=== PATIENT | male | born 1960 ===

== ENCOUNTER 2018-07-01 07:11 | Day surgery (SDC) | payer MEDICARE, MEDICAID ==
[2018-07-01 07:31] VITALS: BMI 40.2
[2018-07-01 07:49] VITALS: O2SAT 100
--- NOTE | 2018-07-01 08:47 | CP.SDSHP ---
Same Day Surgery H & P - History Proposed Procedure: EGD/COLONSCOPY Pre-Op Diagnosis: SEE NOTES - Previous Medical/Surgical History Cardiac: Hypertension, ASHD/CAD, Arrhythmia Endocrine/Metabolic: Other Misc: Other Pain: 4.Moderate Pain - Allergies Allergies: Allergies No Known Allergies Allergy (Verified 05/07/13 08:19) - Physical Exam General Appearance: N Vital Signs: Vital Signs 07/01/18 07:37 Temperature 97.2 F L Pulse Rate 80 Respiratory 17 Rate Blood Pressure 147/85 O2 Sat by Pulse 100 Oximetry Mental Status: Alert & Oriented x3 Neuro: WNL Heart: Other Lungs: WNL GI: Other - {Optional Preform as Required} Breast: WNL Abdomen: Other Rectal: Other Integument: WNL : WNL Ortho: WNL ENT: WNL - Impression Pt. Evaluated Today:Candidate for Anesthesia & Procedure: Yes - Date & Time Time: 08:47 Short Stay Discharge - Short Stay Discharge Admitting Diagnosis/Reason for Visit: DIARRHEA, DYSPEPSIA Disposition: HOME/ ROUTINE
[2018-07-01] MEDS ORDERED: Propofol 10 mg/ml Inj (20 ML) ONE (08:51)
[2018-07-01] MEDS ORDERED: Belladonna-Phenobarbital PO ONE (09:45)
[2018-07-01 10:54] VITALS: TEMP 97.8
[2018-07-01 10:55] VITALS: RESP 12
[2018-07-01 11:01] VITALS: BP 131/67; PULSE 88
== END 2018-07-01 10:20 | disposition home or self-care (01) ==
LOC: C.ENDO 07:11
PROVIDERS: ATTEND Specialist
DX: K57.30 Diverticulosis of large intestine without perforation or abscess without bleeding (principal); R19.7 Diarrhea, unspecified; K64.4 Residual hemorrhoidal skin tags; K64.8 Other hemorrhoids
CPT/HCPCS: 45380; 82948; 88305; 88342; J2704

== ENCOUNTER 2018-09-21 14:46 | Emergency (ER) | payer MEDICARE, MEDICAID ==
[2018-09-21 14:53] VITALS: BMI 36.6
[2018-09-21 14:55] VITALS: BP 160/84; PULSE 114; RESP 20; TEMP 97.9; O2SAT 99
== END 2018-09-21 15:26 | disposition left against medical advice (07) ==
LOC: C.ER 14:46
DX: Z02.89 Encounter for other administrative examinations (principal); R42 Dizziness and giddiness